=== PATIENT | male | born 1970 | race Caucasian/White ===

== ENCOUNTER 2021-10-30 12:15 | Emergency (ER) | payer BC, SELFPAY ==
--- NOTE | 2021-10-30 12:15 | RT.EKG_ITS ---
APPROVED REPORT Exam: Resting ECG Reason for Exam: vertigo Patient Location: E HR:79 bpm ECG Measurements Heart Rate 79 AXIS MD 172 P 49 QRSd 100 QRS 7 QT 376 T 48 QTc 432 Conclusion Incomplete analysis due to missing data in precordial lead(s) Sinus rhythm...normal P axis, V-rate 60- 99. Incomplete analysis due to missing lead. Sinus. No STEMI. I have reviewed and interpreted ECG and agree with software generated interpretation.
[2021-10-30 12:24] VITALS: BP 140/80; PULSE 83; RESP 17; TEMP 36.9; O2SAT 96
--- NOTE | 2021-10-30 12:45 | RT.EKG_ITS ---
APPROVED REPORT Exam: Resting ECG Reason for Exam: vertigo Patient Location: E HR:79 bpm ECG Measurements Heart Rate 79 AXIS KS 169 P 45 QRSd 99 QRS 23 QT 378 T 52 QTc 434 Conclusion Sinus rhythm...normal P axis, V-rate 60- 99. Sinus. Norml axis. No STEMI. I have reviewed and interpreted ECG and agree with software generated interpretation.
--- NOTE | 2021-10-30 12:54 | ED.GENADUL_ITS ---
Discharge Plan Disposition Patient Disposition: HOME Condition: Improving Discharge Details Clinical Impression: Dizziness, Paresthesia Primary Care Provider: Unknown,Unknown ED Provider: Alyssa Campos Home Meds and New Rx's Prescriptions: New meclizine 12.5 mg tablet 12.5 mg PO TID PRN (Reason: dizziness) Qty: 14 0RF Discharge Instructions Instructions: Paresthesia (ED), Dizziness (ED) Additional Instructions: Your lab work, EKG and imaging today is reassuring and shows no evidence of acute concerning or significant findings. Your tick and Lyme panel is pending and you will be notified of any positive results. Drink plenty of fluids and get plenty of rest. You have been placed on care management list to arrange for a follow-up appointment with a primary care doctor to establish care and for reevaluation within the next week. Return immediately to the emergency department if you develop any worsening or new concerning symptoms such as fever, headache, neck pain, confusion, worsening dizziness or any other concerns. Discharge Data Discharge Date/Time-TO BE ENTERED AT DEPARTURE: 10/30/21 16:40 Discharge Physician: Alyssa Campos Medical Decision Making 51-year-old male with no significant past medical history presents for vertigo and tingling in my scalp since yesterday morning. States that mostly resolved yesterday and then returned this morning and is now near resolved again. He does admit to tingling in his scalp after a tick bite to his abdomen with local redness 3 weeks ago but states he had no vertigo at that time. He was treated with 2 weeks of doxycycline. Vitals within normal limits. Patient appears comfortable and nontoxic. His EKG notes a rate of 79, sinus, normal axis, no STEMI and nondiagnostic. He has no focal deficits on exam. No obvious nystagmus. History and presentation may be consistent with BPPV but considering his recent tick bite, will obtain a tick and Lyme panel, screening labs and considering his age and paresthesia, will obtain a CTA head and neck. History and presentation does not appear consistent with meningitis, ACS, PE, CVA. Will give a bolus of IV fluids and meclizine and reassess. Labs and imaging reviewed and unremarkable. Normal white blood cell count. Normal electrolytes. Troponin negative. Imaging reviewed and negative. Patient reassessed and he feels much better. He feels comfortable going home. We will send with a prescription for meclizine. He is advised increase fluids and rest. Advised that the tick and Lyme panel is pending. Patient just moved to this area. He was placed on care management list to arrange for a follow-up appointment with the primary care doctor in the area to establish care for reevaluation. Usual and customary return precautions given prior to discharge. Medical Records Medical records reviewed: Yes I reviewed the patient's medical records. Imaging Data Radiologic Study: Radiologist's impression: CT BRAIN ? NECK CTA CLINICAL HISTORY: ? dizziness, r/o acute cva/mass. ? TECHNIQUE:? Imaging Protocol:? Axial CT angiography was performed with multi- slice acquisition and multi-planar and/or 3D reconstructions. CONTRAST MATERIAL:? Intravenous: Omnipaque 350 Contrast volume:structured data in ml COMPARISON:? No exams were available for comparison FINDINGS: CTA Neck W: Aortic arch anatomy: The aortic arch anatomy is conventional. Anterior circulation: Both common carotid arteries are patent with no evidence of significant stenosis at their origins.? There is no significant atherosclerotic narrowing at the carotid bifurcations and proximal internal carotid arteries bilaterally.? Both internal carotid arteries are nicely patent in the upper neck and skull base-carotid canals. Posterior circulation: Both vertebral arteries originated conventional fashion off the subclavian arteries without significant stenosis at their origins and both vertebral arteries ascend with normal and approximately equal diameters within the foramen transversarium with no evidence of intraluminal thrombus nor dissection of these vessels evident.? At the skull base both vertebral arteries contribute to the formation of the basilar artery. CTA Brain W: Anterior circulation: Both internal carotid artery are patent in the skull base and cavernous sinuses.? The supraclinoid aspects of these vessels are patent.? Both A1 segments are patent as are the anterior cerebral arteries and there is no aneurysm at the level of the anterior communicating artery. Both middle cerebral arteries are patent.? No intraluminal thrombus.? No aneurysms of these vessels evident. Posterior circulation: Basilar artery is patent and ascends in the midline with normal luminal diameter.? Distally it gives off patent bilateral superior cerebellar arteries and above this level terminates as patent bilateral posterior cerebral arteries. CT BRAIN: There is no evidence of intracranial hemorrhage, mass effect, or shift of midline structures.? There are no extra-axial fluid collections.? Ventricles are not enlarged or shifted.? There are no ring enhancing lesions in the brain and no abnormal meningeal enhancement. IMPRESSION: 1. Patent carotid and vertebral arteries in the neck with no evidence of significant atherosclerotic narrowing.? No intraluminal thrombus.? No dissection 2.? Patent intracranial arteries.? No significant stenosis nor dissection.? No aneurysm is evident. 3. ? No acute intracranial findings.? No ring enhancing lesions in the brain nor abnormal meningeal enhancement. XR CHEST 2V PA ? LATERAL CLINICAL HISTORY: ? dizziness, r/o acute disease. ? TECHNIQUE:? 2D digital imaging was performed. COMPARISON:? No exams were available for comparison FINDINGS: 2 views: Heart size is normal.? The mediastinum is not widened. Lungs are clear.? No infiltrates nor pleural effusions. IMPRESSION: No acute pulmonary findings. Lab Data Lab results reviewed: Yes I reviewed the patient's lab results. Labs: Laboratory Tests Range/Units 10/30/21 10/30/21 10/30/21 12:52 12:52 12:52 WBC (4.4-10.8) 10^3/uL 5.48 RBC (4.36-5.78) 10^6/uL 5.13 Hgb (13.5-17.5) g/dL 14.7 Hct (40.0-50.0) % 44.8 MCV (80-95) fL 87 MCH (27.0-33.0) pg 28.7 MCHC (32.0-36.0) % 32.8 RDW (11.8-14.1) % 12.7 Plt Count (130-400) 10^3/uL 289 MPV (8.0-11.0) fL 9.9 Immature Gran % 0.4 Neutrophils % 56.7 Lymphocytes % 32.1 Monocytes % 7.5 Eosinophils % 2.6 Basophils % 0.7 Nucleated RBC % (0.0-0.3) % 0.0 Absolute Neutrophils (1.2-6.7) 10^3/uL 3.11 Absolute Lymphocytes (1.2-3.4) 10^3/uL 1.76 Absolute Monocytes (0.1-0.8) 10^3/uL 0.41 Absolute Eosinophils (0.0-0.7) 10^3/uL 0.14 Absolute Basophils (0.0-0.2) 10^3/uL 0.04 Sodium (136-145) mmol/L 140 Potassium (3.5-5.1) mmol/L 3.9 Chloride (98-107) mmol/L 104 Carbon Dioxide (21.0-32.0) mmol/L 28.6 Anion Gap (3-11) mmol/L 7.4 BUN (7-18) mg/dL 19 H Creatinine (0.70-1.30) mg/dL 0.9 Estimated GFR/1.73 m2 (mL/min/1.73m2) >= 60.00 Glucose (74-106) mg/dL 108 H Calcium (8.5-10.1) mg/dL 8.5 Magnesium (1.8-2.4) mg/dL 2.0 Total Bilirubin (0.2-1.0) mg/dL 0.4 AST (15-37) U/L 13 L ALT (16-63) U/L 23 Alkaline Phosphatase (46-116) U/L 49 Troponin I (<or=60) ng/L < 50 Total Protein (6.4-8.2) g/dL 7.4 Albumin (3.4-5.0) g/dL 3.9 A.phagocytophil DNA PCR (Negative) Negative B. divergens/MO-1 PCR (Negative) Negative Babesia duncani (PCR) (Negative) Negative Babesia microti DNA PCR (Negative) Negative Borrelia (PCR) (Negative) Negative Lyme Disease Antibody (Negative) Negative E.chaffeensis DNA (PCR) (Negative) Negative E.ewingii/canis DNA PCR (Negative) Negative E. muris-like DNA (PCR) (Negative) Negative HPI General Mode of arrival: ambulatory . Date/Time Provider Initiated Documentation: 10/30/21 12:39 . Limitations to Documentation: no limitations . Information obtained by: patient . HPI Narrative: Patient is a 51-year-old male with no significant past medical history who presents with vertigo and tingling in my scalp since yesterday. Patient states he awoke yesterday morning with vertigo and tingling in his scalp which became 95% resolved yesterday until he awoke this morning and it returned. He states that it is 80% resolved at this time. He states he mainly came to get checked out because I have a happy life and 3 kids and I want to make sure I am okay. Patient states he did have a tick bite to his right lower abdomen 3 weeks ago for which she was seen at urgent care and was noted to have an area of redness around the bite and was put on doxycycline for 2 weeks that she finished. Patient states the tick was present under 24 hours and was not engorged but was a deer tick. He states he did have tingling of his scalp for 2 days after his tick bite but states this resolved until yesterday and he did not have vertigo at the time of this tick bite which is new with the tingling in his scalp since yesterday. He denies any fever or chills or rash that he has noted since then. He denies any recent fever, headache, blurry vision, chest pain, shortness of breath, abdominal pain, nausea, vomiting, diarrhea or other new medications. He denies any drug use. Related Data Home Medications Medication Instructions Recorded Confirmed meclizine 12.5 mg tablet 12.5 mg PO TID PRN #14 tab 10/30/21 Previous Rx's Medication Instructions Recorded meclizine 12.5 mg tablet 12.5 mg PO TID PRN #14 tab 10/30/21 Allergies Allergy/AdvReac Type Severity Reaction Status Date / Time No Known Allergies Allergy Unverified 10/30/21 12:44 General Stated Complaint: GenMedical TERRIE: 3 Review of Systems All systems reviewed & are unremarkable except as noted in HPI and below Constitutional Constitutional: Denies chills, Denies excessive sweating, Denies fatigue, Denies fever(s), Denies weakness and Denies weight loss Eyes Eyes: Reports system reviewed and no additional complaints, except as documented and Denies blurry vision ENT Ears, Nose, Mouth, and Throat: Denies vertigo, Denies dizziness, Denies otalgia, Denies nasal congestion, Denies sore throat and Denies throat swelling Cardiovascular Cardiovascular: Denies chest pain, Denies syncope, Denies rapid heart rate and Denies dyspnea Respiratory Respiratory: Denies chest congestion, Denies cough, Denies pain on inspiration and Denies dyspnea Gastrointestinal Gastrointestinal: Denies abdominal pain, Denies diarrhea and Denies vomiting Genitourinary Genitourinary: Denies hematuria, Denies dysuria and Denies flank pain Musculoskeletal Musculoskeletal: Denies back pain and Denies joint swelling Integumentary/Breasts Skin/Breast: Denies lesions and Denies rash Neurologic Neurologic: Denies behavioral changes, Denies confusion, Denies vertigo, Denies dizziness, Denies syncope, Denies localized weakness and Denies weakness Psychiatric Psychiatric: Denies behavioral changes, Denies confusion and Denies depression Endocrine Endocrine: Denies excessive sweating and Denies fatigue Hematologic/Lymphatic Hematologic/Lymphatic: Denies easy bruising and Denies lymphadenopathy Allergic/Immunologic Allergic/Immunologic: Denies throat swelling PFSH All Active Problems (Updated 10/30/21 @ 16:29 by Alyssa Campos DO) Dizziness (Acute) Paresthesia (Acute) Medical History (Updated 10/30/21 @ 16:29 by Alyssa Campos DO) No significant past medical history Surgical History (Updated 10/30/21 @ 13:19 by Alyssa Campos DO) History of hernia repair Social History Smoking/Tobacco Use Status: Never Smoking risk assessment performed?: Yes Alcohol Intake: current Substance use type: does not use Do you feel safe at home: Yes Do you feel safe in your relationship?: Yes Exam Const General: cooperative, healthy appearing and no acute distress Orientation: alert, awake and oriented x3 HENMT Head: normal to inspection Ears: hearing grossly normal bilaterally, external ears normal and TM's normal bilaterally General nose exam: external nose normal Face and sinus: normal facial exam Mouth: oral mucosae normal Teeth and gingiva: dentition normal Throat: posterior oropharynx normal Eyes General: appearance normal, both eyes and all related structures Eyelids: eyelids normal Pupils: PERRL EOM: EOM intact bilaterally Neck Neck: normal visual inspection Lymphatic: no lymphadenopathy noted Chest Chest: normal inspection of the chest Resp Effort & Inspection: normal respiratory effort and able to speak in complete sentences Auscultation: clear to auscultation bilaterally Cardio Rate: regular rate Rhythm: regular rhythm GI Inspection: normal to inspection Palpation: soft, not firm, no guarding, no hepatosplenomegaly, no masses and nontender Auscultation: normal bowel sounds Back/Spine/Pelvis Back: no CVA tenderness Skin General skin exam: no rashes or lesions noted Neuro General: patient alert, patient awake, patient oriented x3, moves all extremities, no meningeal signs and no focal motor deficits Cranial Nerves: CN's II-XI intact bilaterally Cognition: normal cognition Speech: speech normal Gait: normal gait Motor: muscle tone normal throughout and strength 5/5 throughout Sensory Exam: no sensory deficits noted Extrem General: normal to inspection, full ROM and capillary refill normal Psych Appearance: grossly normal Mental Status: mental status grossly normal Speech and Movement: speech and movement normal Affect: normal affect Thought Process: normal Course Vital Signs Vital signs: Vital Signs Temperature 98.4 F 10/30/21 12:24 Pulse 83 10/30/21 12:24 Respiratory Rate 17 10/30/21 12:24 Blood Pressure 140/80 10/30/21 12:24 Pulse Oximetry 96 10/30/21 12:24 Temperature 98.4 F 10/30/21 12:24 Temperature Source Temporal Artery Scan 10/30/21 12:24 Pulse 83 10/30/21 12:24 Respiratory Rate 17 10/30/21 12:24 Respiratory Effort Non-Labored 10/30/21 12:34 Blood Pressure 140/80 10/30/21 12:24 Blood Pressure Position Sitting 10/30/21 12:24 Pulse Oximetry 96 10/30/21 12:24 Oxygen Delivery Method Room Air 10/30/21 12:24 Oxygen Flow Rate 0 10/30/21 12:24 Pain Level 0 10/30/21 12:24 PAWSS Have you Been Recently Intoxicated or Drunk Within the Last 30 days?: No Have you Ever Experienced Previous Episodes of Alcohol Withdrawal?: No Have you ever Experienced Withdrawal Seizures?: No Have you ever Experienced Delirium Tremens(DT)s?: No Have you ever undergone Alcohol Rehabilitation Treatment (i.e, inpt ot outpatient treatment programs)?: No Have you ever Experienced Blackouts?: No Have you ever Combined Alcohol with other Downers within the last 90 days?: No Result: 0
--- NOTE | 2021-10-30 13:00 | DI.CT_ITS ---
Exam(s) CT BRAIN NECK CTA EXAM: CT BRAIN NECK CTA CLINICAL HISTORY: dizziness, r/o acute cva/mass. TECHNIQUE: Imaging Protocol: Axial CT angiography was performed with multi-slice acquisition and mu lti-planar and/or 3D reconstructions. CONTRAST MATERIAL: Intravenous: Omnipaque 350 Contrast volume:structured data in ml COMPARISON: No exams were available for comparison FINDINGS: CTA Neck W: Aortic arch anatomy: The aortic arch anatomy is conventional. Anterior circulation: Both common carotid arteries are patent with no evidence of significant stenosis at their origins. T here is no significant atherosclerotic narrowing at the carotid bifurcations and proximal internal ca rotid arteries bilaterally. Both internal carotid arteries are nicely patent in the upper neck and s kull base-carotid canals. Posterior circulation: Both vertebral arteries originated conventional fashion off the subclavian arteries without significa nt stenosis at their origins and both vertebral arteries ascend with normal and approximately equal d iameters within the foramen transversarium with no evidence of intraluminal thrombus nor dissection o f these vessels evident. At the skull base both vertebral arteries contribute to the formation of th e basilar artery. CTA Brain W: Anterior circulation: Both internal carotid artery are patent in the skull base and cavernous sinuses. The supraclinoid as pects of these vessels are patent. Both A1 segments are patent as are the anterior cerebral arteries and there is no aneurysm at the level of the anterior communicating artery. Both middle cerebral arteries are patent. No intraluminal thrombus. No aneurysms of these vessels e vident. Posterior circulation: Basilar artery is patent and ascends in the midline with normal luminal diameter. Distally it gives off patent bilateral superior cerebellar arteries and above this level terminates as patent bilateral posterior cerebral arteries. CT BRAIN: There is no evidence of intracranial hemorrhage, mass effect, or shift of midline structures. There are no extra-axial fluid collections. Ventricles are not enlarged or shifted. There are no ring enh ancing lesions in the brain and no abnormal meningeal enhancement. IMPRESSION: 1. Patent carotid and vertebral arteries in the neck with no evidence of significant atherosclerotic narrowing. No intraluminal thrombus. No dissection 2. Patent intracranial arteries. No significant stenosis nor dissection. No aneurysm is evident. 3. No acute intracranial findings. No ring enhancing lesions in the brain nor abnormal meningeal e nhancement. RADIATION DOSE DELIVERED: 2,127.47mGy.cm Total DLP DATA REPOSITORY: All CT scans at this facility are submitted to the National Radiology Data Registry (NRDR) Dose Index Registry (DIR) with the [employer] ([employer]). RADIATION OPTIMIZATION: All CT scans at this facility use at least one of these dose optimization te chniques: automated exposure control; mA and/or kV adjustment per patient size (includes targeted exa ms where dose is matched to clinical indication); or iterative reconstruction.
--- NOTE | 2021-10-30 13:00 | DI.RAD_ITS ---
Exam(s) XR CHEST 2V PA LATERAL EXAM: XR CHEST 2V PA LATERAL CLINICAL HISTORY: dizziness, r/o acute disease. TECHNIQUE: 2D digital imaging was performed. COMPARISON: No exams were available for comparison FINDINGS: 2 views: Heart size is normal. The mediastinum is not widened. Lungs are clear. No infiltrates nor pleural effusions. IMPRESSION: No acute pulmonary findings. DATA REPOSITORY: RADIATION DOSE DELIVERED:
[2021-10-30] MEDS: Normal Saline 1,000 ML 1000 ML IV (13:35)
[2021-10-30] MEDS: Meclizine 25 MG TAB PO (13:35)
[2021-10-30 13:36] VITALS: RESP 16
[2021-10-30 13:38] LABS: Abs Immature Grans 0.02 10^3/uL (0.0-0.06); Absolute Basophil Count 0.04 10^3/uL (0.0-0.2); Absolute Eosinophil Count 0.14 10^3/uL (0.0-0.7); Absolute Lymphocyte Count 1.76 10^3/uL (1.2-3.4); Absolute Monocyte Count 0.41 10^3/uL (0.1-0.8); Absolute Neutrophil Count 3.11 10^3/uL (1.2-6.7); Basophils % 0.7; Eosinophils % 2.6; HCT 44.8 % (40.0-50.0); HGB 14.7 g/dL (13.5-17.5); Immature Grans % 0.4; Lymphocytes % 32.1; MCH 28.7 pg (27.0-33.0); MCHC 32.8 % (32.0-36.0); MCV 87 fL (80-95); MPV 9.9 fL (8.0-11.0); Monocytes % 7.5; Neutrophils % 56.7; Platelet Count 289 10^3/uL (130-400); RBC 5.13 10^6/uL (4.36-5.78); RDW 12.7 % (11.8-14.1); RDW-SD 40.6 fL; WBC 5.48 10^3/uL (4.4-10.8)
[2021-10-30 13:57] LABS: ALT 23 U/L (16-63); AST 13 U/L (15-37); Albumin 3.9 g/dL (3.4-5.0); Alkaline Phosphatase 49 U/L (46-116); Anion Gap 7.4 mmol/L (3-11); BUN 19 mg/dL (7-18); Bilirubin, Total 0.4 mg/dL (0.2-1.0); CO2 28.6 mmol/L (21.0-32.0); CREATININE 0.9 mg/dL (0.70-1.30); Calcium 8.5 mg/dL (8.5-10.1); Chloride 104 mmol/L (98-107); Glucose 108 mg/dL (74-106); Potassium 3.9 mmol/L (3.5-5.1); Sodium 140 mmol/L (136-145); Total Protein 7.4 g/dL (6.4-8.2); Troponin I < 50 ng/L (<or=60)
[2021-10-30] MEDS: Omnipaque 350 MG/ML 100 ML BTL IJ (14:54)
[2021-10-30] MEDS: Normal Saline Flush 10 ML SYR IVP (15:26)
--- NOTE | 2021-10-30 16:29 | NUR.NOTE ---
Nursing Note: Referral given to Care Management needs PCP, for dizziness in 1 week. Maria Isabel is prevention specialist for telephone call today. Elana Quintana
[2021-10-30 16:34] VITALS: BP 136/73; PULSE 68; RESP 16; TEMP 36.6; O2SAT 96
[2021-10-31 10:48] LABS: Lyme Ab w Rflx to Lyme Confirm Negative (Negative)
[2021-11-01 22:23] LABS: Anaplasma phagocytophilum Negative (Negative); B. miyamotoi PCR Negative (Negative); Babesia divergens/MO-1 Negative (Negative); Babesia duncani Negative (Negative); Babesia microti Negative (Negative); Ehrlichia chaffeensis Negative (Negative); Ehrlichia ewingii/canis Negative (Negative); Ehrlichia muris eauclairensis Negative (Negative)
== END 2021-10-30 16:40 | disposition home or self-care (01) ==
PROVIDERS: Emergency Provider Physician Assistant
DX: R42 Dizziness and giddiness (principal); R20.2 Paresthesia of skin; S30.861D Insect bite (nonvenomous) of abdominal wall, subsequent encounter; W57.XXXD Bitten or stung by nonvenomous insect and other nonvenomous arthropods, subsequent encounter
CPT/HCPCS: 36415; 70496; 70498; 80053; 87798; 93005; 96360; 99285; 71046; 83735; 84484; 85025; 86618; 93010; 99283; J3490